=== PATIENT | female | born 1965 | race African-American/Black ===

== ENCOUNTER 2024-06-28 16:36 | Emergency (ER) | payer BC ==
[~2024-06-28] VITALS: Ht 170.2 cm; Wt 87.0 kg
[2024-06-28 16:39] VITALS: O2SAT 99
[2024-06-28 19:58] LABS: EOSINOPHILS % 1.1 % (0.0-5.0); HEMATOCRIT. 40.9 % (36.0-48.0); HEMOGLOBIN. 13.3 g/dL (12.0-16.0); LYMPHOCYTES % 24.9 % (20.0-50.0); MEAN CORPUSCULAR HEMOGLOBIN 27.2 pg (28.0-32.0); MEAN CORPUSCULAR HGB CONC 32.5 g/dL (31.0-37.0); MEAN CORPUSCULAR VOLUME 83.9 fL (81.0-99.0); MEAN PLATELET VOLUME 7.1 fl (7.4-10.4); MONOCYTES % 6.6 % (2.0-8.0); NEUTROPHILS % 66.4 % (40.0-76.0); PLATELET 234 x1000/uL (130-400); RED BLOOD CELL COUNT 4.87 mill/uL (4.2-5.4); RED CELL DISTRIBUTION WIDTH 14.9 % (11.6-14.6); WHITE BLOOD COUNT 7.6 x1000/uL (4.5-11.0)
[2024-06-28] MEDS: ACETAMINOPHEN 325MG TABLET PO ONE (20:01)
[2024-06-28 20:07] LABS: CHLORIDE 105 mEq/L (98-107); POTASSIUM 3.7 mEq/L (3.5-5.1); SODIUM 140 mEq/L (136-145)
[2024-06-28 20:08] LABS: CALCIUM 9.3 mg/dL (8.7-10.4); CARBON DIOXIDE 31 mEq/L (21-32)
[2024-06-28 20:11] LABS: INR 1.1; PROTHROMBIN TIME 11.3 sec (9.6-11.0)
[2024-06-28 20:13] LABS: CREATININE 0.7 mg/dL (0.6-1.0); GLUCOSE 100 mg/dL (70-105); UREA NITROGEN BLOOD 6 mg/dL (9-23)
[2024-06-28 20:14] LABS: TROPONIN I HIGH SENSITIVITY 7 ng/L (3.0-34)
[2024-06-28 21:16] LABS: CLARITY URINE CLEAR (CLEAR); COLOR URINE YELLOW (YELLOW); GLUCOSE URINE NEGATIVE (NEGATIVE); KETONES URINE NEGATIVE (NEGATIVE); LEUKOCYTE ESTERASE URINE NEGATIVE (NEGATIVE); NITRITE URINE NEGATIVE (NEGATIVE); OCCULT BLOOD URINE NEGATIVE (NEGATIVE); PROTEIN URINE NEGATIVE (NEGATIVE); SPECIFIC GRAVITY URINE 1.007 (1.005-1.030); UROBILINOGEN URINE 0.2 E.U./dL (0.2-1.0)
[2024-06-28 22:00] LABS: TROPONIN I HIGH SENSITIVITY 5 ng/L (3.0-34)
[2024-06-28 23:34] VITALS: BP 133/79; PULSE 78; RESP 14; TEMP 37.1; O2SAT 98
== END 2024-06-28 23:42 | disposition home or self-care (01) ==
LOC: ER 16:36
DX: R51.9 Headache, unspecified (principal); E78.00 Pure hypercholesterolemia, unspecified; J45.909 Unspecified asthma, uncomplicated; Z79.899 Other long term (current) drug therapy
CPT/HCPCS: 36415; 71045; 80048; 81003; 84484; 85025; 93005; 99285